=== PATIENT | female | born 1965 | race African-American/Black ===

== ENCOUNTER 2016-12-27 14:47 | Emergency (ER) | payer MEDICAID, SELFPAY ==
[~2016-12-27] VITALS: Ht 167.6 cm; Wt 72.6 kg
[2016-12-27 15:25] VITALS: BP 110/61
[2016-12-27] MEDS ORDERED: Acetaminophen 500mg (ES) tab ORAL ONE (15:30)
--- NOTE | 2016-12-27 16:54 | Emergency Room Report ---
History of Present Illness General Chief Complaint: Multiple Trauma/Fall Source: Patient Present Illness HPI 51-year-old female presents emergency department complaining of 8/10 in severity sacral pain, left ankle in addition to left-sided neck pain status post mechanical slip and fall last night. Patient denies hitting her head she did not lose consciousness. Patient states that she twisted her angle and landed on her sacrum she denies hitting the back of her neck however states she is having some neck pain today. Patient states she took ibuprofen twice today with minimal relief. Patient denies nausea vomiting. Patient denies previous injuries to the affected extremities. Denies numbness tingling or loss of sensation or gross motor movements of the extremities, incontinence of bowel or bladder. Denies CP, Palpitations, LOC, AMS, dizziness, Changes in Vision, Sensation, paresthesias, or a sudden severe headache. Allergies: Coded Allergies: No Known Allergies (Unverified , 12/27/16) Patient History Past Medical History: see triage record Past Surgical History: none Pertinent Family History: none Last Menstrual Period: none Now: No Immunizations: UTD Reviewed Nursing Documentation: PMH: Agreed, PSxH: Agreed Nursing Documentation-PMH Past Medical History: No Stated History Review of Systems All Other Systems: negative except mentioned in HPI Physical Exam Vital Signs Date Time Temp Pulse Resp B/P Pulse Ox O2 Delivery O2 Flow Rate FiO2 12/27/16 15:16 97.3 65 18 110/61 100 Room Air Sp02 EP Interpretation: reviewed, normal General Appearance: no apparent distress, alert, GCS 15, non-toxic Head: normocephalic, atraumatic Eyes: bilateral eye PERRL, bilateral eye normal inspection ENT: hearing grossly normal, normal pharynx, no angioedema, normal voice Neck: full range of motion, no bony tend, supple/symm/no masses, tender lateral - left lateral TTP. pt. reports tightness Respiratory: chest non-tender, lungs clear, normal breath sounds, speaking full sentences Cardiovascular #1: regular rate, rhythm, no edema, normal capillary refill Genitourinary: normal inspection, no CVA tenderness Musculoskeletal: back normal, gait/station normal, normal range of motion, non- tender, no calf tenderness, tender - left lateral ankle TTP, no swelling or bruising noted FROM, paraspinal TTP in the Lumbar and sacral spine, TTP midline in the sacrum, no bruises or erythema noted. Neurologic: alert, oriented x3, responsive, motor strength/tone normal, sensory intact, speech normal Psychiatric: judgement/insight normal, memory normal, mood/affect normal, no suicidal/homicidal ideation Reflexes: 4+ bicep (R), 4+ bicep (L), 4+ tricep (R), 4+ tricep (L), 4+ knee (R) , 4+ knee (L) Skin: normal color, no rash, warm/dry, well hydrated Lymphatic: no adenopathy Medical Decision Making PA Attestation Dr. villeda is my supervising Physician whom patient management has been discussed with. Diagnostic Impression: Primary Impression: Contusion Qualified Codes: S30.0XXA - Contusion of lower back and pelvis, initial encounter Additional Impression: Left ankle sprain Qualified Codes: S93.402A - Sprain of unspecified ligament of left ankle, initial encounter ER Course Pt. presents to the ED c/o Left ankle and sacral pain s/p mechanical slip and fall last night. no KO. Ddx considered but are not limited to Fracture, dislocation, contusion, Sprain/ Strain/Spasm. Vital signs: are WNL, pt. is afebrile H&PE are most consistent with musculoskeletal injury. ORDERS: - X-ray left ankle 3 views - negative for fx, Dislocation, or significant soft tissue injury, per official radiology report. - X-ray Sacrum 3 views - negative for fx, Dislocation, or significant soft tissue injury, per official radiology report. ED INTERVENTIONS: - Tylenol PO 1000mg -Baldev wrap applied to left ankle by desktop technician. Pt. remains neurovascularly intact. DISCHARGE: At this time pt. is stable for d/c to home. Will provide printed patient care instructions, and any necessary prescriptions. Care plan and follow up instructions have been discussed with the patient prior to discharge. Last Vital Signs Date Time Temp Pulse Resp B/P Pulse Ox O2 Delivery O2 Flow Rate FiO2 12/27/16 15:25 97.3 81 18 110/61 100 Room Air Disposition: HOME, SELF-CARE Condition: Stable Scripts Ibuprofen* (MOTRIN*) 600 Mg Tablet 600 MG ORAL THREE TIMES A DAY, #30 TAB 0 Refills Prov: Merary Ace 12/27/16 Referrals: NON PHYSICIAN (PCP) Patient Instructions: Contusion, [id number] Additional Instructions: Take medications as directed. Follow up with PCP in 3-5 days Return sooner to ED if new symptoms occur, or current symptoms become worse. - Please note that this Emergency Department Report was dictated using [employer] machine operator technology software, occasionally this can lead to erroneous entry secondary to interpretation by the dictation equipment. Merary Ace Dec 27, 2016 16:54
--- NOTE | 2016-12-27 16:59 | Diagnostic Imaging Report ---
Indication: PAIN Technique: 3 views of the left ankle Comparison: none Findings: No acute fractures. No dislocations. Joint spaces are preserved. Normal mineralization. No radiopaque foreign body. Impression: Negative
--- NOTE | 2016-12-27 17:06 | Diagnostic Imaging Report ---
Indication: PAIN Technique: Multiple views of the sacrum Comparison: Findings: No acute fractures. Sacral arches are preserved. Sacroiliac joint spaces are preserved. Impression: Negative
[2016-12-27] MEDS ORDERED: IBUPROFEN600 MG ORAL (17:20)
[2016-12-27 17:42] VITALS: BP 129/67
== END 2016-12-27 17:42 | disposition home or self-care (01) ==
LOC: EMR 16:00
DX: S30.0XXA Contusion of lower back and pelvis, initial encounter (principal); S93.402A Sprain of unspecified ligament of left ankle, initial encounter; M54.2 Cervicalgia; W01.0XXA Fall on same level from slipping, tripping and stumbling without subsequent striking against object, initial encounter; Y93.9 Activity, unspecified; Y92.9 Unspecified place or not applicable
CPT/HCPCS: 72220; 99284

== ENCOUNTER 2020-02-25 11:11 | Emergency (ER) | payer MEDICAID ==
[~2020-02-25] VITALS: Ht 167.6 cm; Wt 78.9 kg
[~2020-02-25 11:11] MED LIST: BENADRYL25 MG ORAL; IBUPROFEN600 MG ORAL
[2020-02-25 11:24] VITALS: BP 139/94
--- NOTE | 2020-02-25 11:33 | Emergency Room Report ---
History of Present Illness General Chief Complaint: Upper Extremity Injury Source: Patient Present Illness HPI Patient tripped yesterday on concrete crack and fell onto her right hand and right lower leg. Both areas hurt but the hands hurts much more. She has had swelling and cannot close her hand. She denies numbness. The middle and ring finger are the most affected. She iced it initially and put a topical pain wrap on it last night. She took Motrin yesterday. She rates the pain 6/10 at this time. Her lower leg hurts much less. She heard a popping sound when she fell. She is able to ambulate. 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 Last Menstrual Period: none Reviewed Nursing Documentation: PMH: Agreed; PSxH: Agreed Nursing Documentation-PMH Past Medical History: No Stated History Review of Systems Constitutional: Denies: fever Respiratory: Denies: shortness of breath Gastrointestinal: Denies: nausea, vomiting Musculoskeletal: Reports: see HPI Skin: Reports: see HPI Neurological: Reports: see HPI Physical Exam Vital Signs Date Time Temp Pulse Resp B/P (MAP) Pulse Ox O2 Delivery O2 Flow Rate FiO2 02/25/20 11:18 98.1 69 18 139/94 (109) 99 Room Air Sp02 EP Interpretation: reviewed, normal General Appearance: well appearing, no apparent distress, GCS 15 Head: normocephalic Eyes: bilateral eye normal inspection, bilateral eye PERRL ENT: other - Mask Neck: full range of motion Cardiovascular #1: regular rate, rhythm Cardiovascular #2: 2+ femoral (R) Gastrointestinal: normal inspection Musculoskeletal: gait/station normal, swelling - Dorsum of hand extending also to proximal interphalangeal joints with decreased range of motion unable to make a fist, tenderness - Right hand and right lower leg Neurologic: alert, distal neuro normal Psychiatric: mood/affect normal Skin: normal color, abrasions - Minimal right outer calf and knee Medical Decision Making Diagnostic Impression: Primary Impression: Right hand fracture Qualified Codes: S62.91XA - Unspecified fracture of right wrist and hand, initial encounter for closed fracture Additional Impression: Contusion of right leg Qualified Codes: S80.11XA - Contusion of right lower leg, initial encounter ER Course Patient presents post fall with right leg and right hand pain. Differential includes fracture, contusion and sprain. X-rays are indicated. Motrin will be given. X-ray reveals a possible fracture distal metacarpal. Some of the edges are rounded and this may be chronic condition however this is the the place where the patient has pain. Volar splint was applied by nurse. Position excellent with improvement and distal neurovascular exam normal. A sling was also given with improvement and excellent placement. Discussed the treatment plan and the need to follow-up with an blasting entry specialist. Patient's pain is improved. Patient given copies of her x-rays. Patient stable for outpatient observation and treatment. Last Vital Signs Date Time Temp Pulse Resp B/P (MAP) Pulse Ox O2 Delivery O2 Flow Rate FiO2 02/25/20 12:33 98.1 18 139/94 99 Room Air 02/25/20 11:18 69 Status: improved Disposition: HOME, SELF-CARE Condition: Improved Scripts Acetaminophen (Tylenol) 325 Mg Tablet 650 MG ORAL Q6H PRN for Prn Pain/Headache/Temp > 101, #20 TAB 0 Refills Prov: Arnold Murillo MD 02/25/20 Ibuprofen* (MOTRIN*) 600 Mg Tablet 600 MG ORAL Q6H PRN for FOR PAIN, #20 TAB 0 Refills Prov: Arnold Murillo MD 02/25/20 Arnold Murillo MD Feb 25, 2020 11:33
[2020-02-25] MEDS ORDERED: TYLENOL325 MG ORAL (12:19)
[2020-02-25] MEDS ORDERED: IBUPROFEN600 M1 ORAL (12:19)
[2020-02-25 12:33] VITALS: BP 139/94
--- NOTE | 2020-02-25 12:59 | Diagnostic Imaging Report ---
EXAM: X-RAY XRAY Hand Complete R CLINICAL HISTORY: Trauma with hand pain. COMPARISON: None FINDINGS: Total of 3 views of the right hand were obtained. Alignment is anatomic. There is a bony defect noted at the head of the third metacarpal with an adjacent ossific fragment. The other bony appendages appear otherwise unremarkable. Joint spaces are unremarkable. There is soft tissue swelling at the dorsum of the hand. IMPRESSION: APPARENT CHIP FRACTURE AT THE HEAD OF THE THIRD METACARPAL WITH SOFT TISSUE SWELLING.
== END 2020-02-25 12:34 | disposition home or self-care (01) ==
LOC: EMR 11:46
DX: S62.91XA Unspecified fracture of right hand, initial encounter for closed fracture (principal); S80.11XA Contusion of right lower leg, initial encounter; W19.XXXA Unspecified fall, initial encounter; Y92.9 Unspecified place or not applicable
CPT/HCPCS: 29125; 73130; Z7502; 99283